=== PATIENT | female | born 1975 | race Caucasian/White ===

== ENCOUNTER → 2016-07-14 | Outpatient (CLI) | payer OTHER ==
[~2016-07-14] MED LIST: CYNI1000 IM; ESTR10TA PV; IBUP-1050 PO; KETO10TA PO; OXYC-57 PO; VTMD PO
--- NOTE | 2016-07-14 14:11 | MAMMOGRAPHY REPORT ---
BILATERAL DIGITAL DIAGNOSTIC MAMMOGRAM TOMOSYNTHESIS WITH CAD AND TARGETED RIGHT ULTRASOUND: 07/15/19 17 CLINICAL HISTORY: The patient reports pain in her right breast for approximately one week with an as sociated area of firmness. She reports a history of a benign surgical excision of the right breast years ago. She also reports injury to the right breast around [place] in which she fell on her br east and had pain which lasted for approximately 2 weeks. TECHNIQUE: Breast tomosynthesis in addition to standard 2D mammography was performed. Current study was also evaluated with a Computer Aided Detection (CAD) system. Bilateral CC and MLO 2-D and deborah synthesis images were obtained. COMPARISON: Comparison is made to exams dated: 07/25/2012 mammogram, 02/17/2011 ultrasound, 02/17/2011 [facility], 06/17/2006 mammogram, and 08/07/2002 mammogram. BREAST COMPOSITION: The tissue of both breasts is almost entirely fatty. FINDINGS: A triangle marker weldon the site of the palpable lump and pain in the right upper outer q uadrant. There are no suspicious masses, calcifications, or areas of architectural distortion noted in either breast. There has been no significant interval change compared to prior exams. Again no iman are coarse benign dystrophic calcifications in the right upper outer quadrant. Targeted ultrasound was performed of the area of palpable firmness and pain pointed out by the patie nt, involving the right 10 to 12:00 breast, from approximately periareolar region to 5 cm from the n ipple. Sonographically normal tissue is seen, without evidence of a mass or other suspicious sonogr aphic abnormality. Incidentally noted is a 3 mm echogenic mass with posterior acoustic shadowing in the right breast at 11:00, 7 cm from the nipple, which corresponds with one of the benign dystrophi c calcifications seen mammographically. IMPRESSION: ACR BI-RADS CATEGORY 2: BENIGN, TARGETED ULTRASOUND ACR BI-RADS CATEGORY 2: BENIGN No suspicious mammographic or sonographic abnormality at the site of the palpable firmness and pain pointed out by the patient in the right breast. There is no mammographic or targeted sonographic ev idence of malignancy. Recommend clinical follow-up for right breast symptoms, and recommend routine bilateral screening mammograms in one year. The patient has been verbally notified of the results. Approximately 10% of breast cancers are not detected with mammography. A negative mammographic repor t should not delay biopsy if a clinically suggestive mass is present. Maite Lugo M.D. ah/:07/14/2016 09:48:31 Recreational Therapy Technician: Jessica MILLER)(Ry), [facility] letter sent: Normal 1/2 BI-RADS Code: ACR BI-RADS Category 2: Benign Ultrasound BI-RADS: ACR BI-RADS Category 2: Benign
== END | disposition home or self-care (01) ==
LOC: C.MAMM 08:54
PROVIDERS: ATTEND Internal Medicine
DX: N63 Unspecified lump in breast (principal)

== ENCOUNTER → 2016-07-27 | Outpatient (CLI) | payer OTHER | END | disposition home or self-care (01) | LOC: C.LABSPEC 17:33 | PROVIDERS: ATTEND Physician Assistant | DX: N89.8 Other specified noninflammatory disorders of vagina (principal) ==

== ENCOUNTER 2016-08-27 09:08 | Day surgery (SDC) | payer OTHER ==
[2016-08-25 15:03] VITALS: BMI 46.0
--- NOTE | 2016-08-25 15:40 | PAT Medication Instructions ---
Service Date Aug 25, 2016. Current Home Medication List Ibuprofen (Advil), 800 MG PO DAILY PRN for Pain Medication Instructions For Your Scheduled Surgery - Check with surgeon for instructions: Ibuprofen (Advil), 800 MG PO DAILY PRN for Pain If you have any questions please call us at [phone] or [phone] or [phone]
[2016-08-25 16:19] LABS: BASO % 0.2 %; BASO ABS # 0.02 K/uL (0-0.2); EOS % 1.9 %; HEMATOCRIT 42.7 % (37-47); IG% 0.2 %; LYMPH % 36.8 %; LYMPH ABS # 3.26 K/uL (1.2-3.4); MEAN CELL VOLUME 59.2 fL (80-100); MEAN CORPUSCULAR HEMOGLOBIN 19.6 pg (25-34); MONO % 5.3 %; NEUT % 55.6 %; PLATELET COUNT 192 K/uL (130-400); RED BLOOD COUNT 7.21 M/uL (4.2-5.4); WHITE BLOOD COUNT 8.86 K/uL (4.8-10.8)
--- NOTE | 2016-08-25 16:24 | DIAGNOSTIC IMAGING REPORT ---
CHEST PREADMISSION(PA/LAT) CLINICAL HISTORY: 41 years-old Female presenting with PREOP. TECHNIQUE: PA and lateral views of the chest were obtained. COMPARISON: 12/04/2012. FINDINGS: Cardiomediastinal silhouette normal. Lungs and pleural spaces clear. Osseous structures normal. Cholecystectomy clips noted. IMPRESSION: 1. No acute cardiopulmonary disease. Electronically signed by: Sampson Augustin M.D. 08/25/2016 4:22 PM Dictated Date/Time: 08/25/2016 4:21 PM
[2016-08-25 16:25] LABS: INR 0.9 (0.9-1.1)
[2016-08-25 16:29] LABS: CALCIUM 9.5 mg/dl (8.5-10.1); CREATININE 0.94 mg/dl (0.60-1.20); POTASSIUM 3.9 mmol/L (3.5-5.1)
[2016-08-25 16:54] LABS: COMPLETE YES; MICROCYTOSIS PRESENT
[~2016-08-27] VITALS: Ht 175.3 cm; Wt 144.7 kg
[~2016-08-27 09:08] MED LIST changes: +ACETAMINOPHEN 500 MG TAB PO SCH; +ATROPINE SULFATE 0.1 MG/ML 5ML SYR IV PRN; +CLINDAMYCIN 600 MG/54 ML D5W 54 ML IV SCH; -CYNI1000 IM; -ESTR10TA PV; +EpHEDrine SULFATE INJ 50 MG/ML AMP IV PRN; +FENTANYL CITRATE INJ 50 MCG/1 ML 2 ML VIAL IV PRN; -KETO10TA PO; +LACTATED RINGER'S 1000ML 1,000 ML IV SCH; +LACTATED RINGER'S 1000ML IV SCH; +ONDANSETRON INJ 2 MG/ML 2 ML VIAL IV PRN; -OXYC-57 PO; +ROPIVACAINE 0.5% 5 MG/ML 30 ML VIAL ONE; -VTMD PO
[2016-08-27 09:36] VITALS: BP 138/88; PULSE 70; TEMP 36.8; O2SAT 97; Ht 175.3 cm; Wt 144.7 kg
[2016-08-27] MEDS ORDERED: PROPOFOL IV EMULSION 10 MG/ML 20 ML VIAL IV ONE (09:42)
[2016-08-27] MEDS ORDERED: LIDOCAINE HCL 2% 2 ML VIAL (20MG/ML) ONE (09:42)
--- NOTE | 2016-08-27 09:42 | History & Physical Bridge Note ---
H&P Re-Evaluation Bridge Note: I have examined the patient, reviewed the History & Physical and in the interval since the performance of the History & Physical I have noted the following changes of clinical significance: No changes noted
[2016-08-27] MEDS ORDERED: MIDAZOLAM HCL 1 MG/ML 2ML VIAL ONE (09:43)
[2016-08-27] MEDS ORDERED: FENTANYL CITRATE INJ 50 MCG/1 ML 2 ML VIAL ONE (09:43)
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
[2016-08-27] MEDS ORDERED: SUCCINYLCHOLINE CHLORIDE 20 MG/ML 10 ML VIAL IV ONE (10:22)
[2016-08-27] MEDS ORDERED: ROCURONIUM BROMIDE 10 MG/ML 5 ML VIAL ONE (10:22)
[2016-08-27] MEDS ORDERED: BUPIVACAINE/EPINEPHRINE 0.5% MPF 1:200,000 10 ML VIAL ONE ×2 (11:36→11:37)
[2016-08-27] MEDS ORDERED: EpINEphrine HCL INJ 1 MG/ML 5ML SYRINGE ONE (11:38)
[2016-08-27] MEDS ORDERED: KETO10TA PO (12:55)
[2016-08-27] MEDS ORDERED: OXYC-57 PO (12:55)
[2016-08-27] MEDS ORDERED: SODIUM CHLORIDE 0.9% 1000ML 1,000 ML IV SCH (12:57)
--- NOTE | 2016-08-27 12:57 | Discharge Instructions ---
Discharge Instructions Date of Service Aug 27, 2016. Admission Reason for Admission: Osteophyte of Bone Discharge Discharge Diagnosis / Problem: SAME ABOVE Discharge Goals Goal(s): Decrease discomfort, Improve function Activity Recommendations Activity Limitations: as noted below Lifting Limitations: gradually increase as tolerated Exercise/Sports Limitations: gradually increase as tolerated Shower/Bathe: tomorrow Driving or Machine Use: WHEN OUT OF THE SLING AND OFF OF PAIN MEDICATION . Instructions / Follow-Up Instructions / Follow-Up MEDICATIONS: * Resume previous medications unless instructed otherwise by your surgeon. * Always take pain medication on a full stomach or with food to avoid upset stomach. * Do not drink alcohol or drive while taking narcotics. * Ibuprofen or Tylenol may be taken if narcotic not needed. SPECIAL CARE INSTRUCTIONS: __ None _X_ Keep extremity elevated and iced x 48 hours; apply ice 20-30 minutes 8-10 times/day. May remove at night. _X_ Sling (WEAR NEEDED FOR COMFORT) __24 hrs/day __ Remove at night __ Shoulder Immobilizer __ 24 hrs/day __ Remove at night _X_ Dressing __ Maintain until seen in office, may shower with plastic over site _X_ Remove dressings in 24-48 hours and then may shower _X_ Cover incisions with band-aids after showering __ Do not remove steri-strips Call physician if chills or temperature rises above 102 degrees or pain unrelieved by prescribed pain medications at . DO NOT TAKE OTHER ANTI-INFLAMMATORIES SUCH IBUPROFEN WHILE TAKING TORADOL TAKE TORADOL EVERY 8 HOURS WITH FOOD . Current Hospital Diet Patient's current hospital diet: Discharge Diet Recommended Diet: Regular Diet Fluid Restriction: None Procedures Procedures Performed: Right Shoulder Arthroscopy Distal Clavicle Resection Pending Studies Studies pending at discharge: no Work Instructions Return To Work: after follow-up Medical Emergencies . Who to Call and When: Medical Emergencies: If at any time you feel your situation is an emergency, please call 911 immediately. . Non-Emergent Contact Non-Emergency issues call your: Primary Care Provider Call Non-Emergent contact if: you have a fever, temperature is above 101.5 . "Provider Documentation" section prepared by Teodoro Villanueva. . VTE Core Measure Inpt VTE Proph given/why not?: Treatment not indicated
[2016-08-27] MEDS ORDERED: ONDANSETRON INJ 2 MG/ML 2 ML VIAL IV PRN (13:00)
[2016-08-27] MEDS ORDERED: OXYCODONE/ACETAMINOPHEN 5-325 TAB PO PRN ×2 (13:00)
--- NOTE | 2016-08-27 13:37 | Anesthesiology Progress Note ---
Anesthesia Post Op Note Date & Time Aug 27, 2016 at 13:37 Vital Signs Pain Intensity: 0 Vital Signs Past 12 Hours Date Time Temp Pulse Resp B/P (MAP) Pulse Ox O2 Delivery O2 Flow Rate FiO2 08/27/16 13:31 132/80 08/27/16 13:30 51 20 100 08/27/16 13:30 50 20 08/27/16 13:27 36.2 51 21 132/80 100 Nasal Cannula 2 08/27/16 13:27 123/93 08/27/16 13:25 54 20 100 08/27/16 13:25 53 20 08/27/16 13:22 159/78 08/27/16 13:20 58 20 100 08/27/16 13:20 56 20 08/27/16 13:19 50 15 100 08/27/16 13:19 50 15 100 08/27/16 13:19 54 15 08/27/16 13:19 54 15 08/27/16 13:17 135/83 08/27/16 13:17 135/83 08/27/16 13:14 54 21 100 08/27/16 13:14 54 21 100 08/27/16 13:14 54 21 08/27/16 13:14 54 21 08/27/16 13:12 149/86 08/27/16 13:12 149/86 08/27/16 13:09 52 17 100 08/27/16 13:09 51 17 08/27/16 13:09 51 17 08/27/16 13:09 52 17 100 08/27/16 13:07 123/85 08/27/16 13:07 123/85 08/27/16 13:04 52 20 100 08/27/16 13:04 52 20 08/27/16 13:04 52 20 08/27/16 13:04 52 20 100 08/27/16 13:03 119/74 08/27/16 13:03 119/74 08/27/16 12:59 61 27 100 08/27/16 12:59 61 27 100 08/27/16 12:59 64 27 08/27/16 12:59 64 27 08/27/16 12:57 139/71 08/27/16 12:57 139/71 08/27/16 12:55 138/83 08/27/16 12:55 138/83 08/27/16 12:54 36.0 59 21 138/83 100 Mask 10 08/27/16 12:54 55 19 100 08/27/16 12:54 55 19 100 08/27/16 12:54 59 19 08/27/16 12:54 59 19 08/27/16 09:36 36.8 70 18 138/88 (105) 97 Room Air Notes Mental Status: alert / awake / arousable, participated in evaluation Pt Amnestic to Procedure: Yes Nausea / Vomiting: adequately controlled Pain: adequately controlled Airway Patency, RR, SpO2: stable & adequate BP & HR: stable & adequate Hydration State: stable & adequate Anesthetic Complications: no major complications apparent
[2016-08-27 13:45] VITALS: BP 101/57; PULSE 52; TEMP 36.2; O2SAT 94
--- NOTE | 2016-08-27 14:08 | [facility] Post Operative Brief Note ---
Immediate Operative Summary Operative Date Aug 27, 2016. Pre-Operative Diagnosis Right AC joint arthritis Post-Operative Diagnosis Right AC joint arthritis Procedure(s) Performed Right Shoulder Arthroscopy Distal Clavicle Resection Surgeon Dr Carlton Wiley Nuclear Security Officer Surgeon(s) Bertram Villanueva PA-C Estimated Blood Loss 5cc Findings as above Specimens None as per surgeon Complication(s) None Disposition Recovery Room / PACU
[2016-08-27 14:15] VITALS: BP 104/63; PULSE 62; TEMP 36.2; O2SAT 94
[2016-08-27 14:45] VITALS: BP 109/65; PULSE 62; TEMP 36.5; O2SAT 96
== END 2016-08-27 14:50 | disposition home or self-care (01) ==
LOC: C.ACU 09:08
PROVIDERS: ATTEND Orthopaedic Surgery
DX: M19.011 Primary osteoarthritis, right shoulder (principal); M25.811 Other specified joint disorders, right shoulder

== ENCOUNTER → 2017-06-02 | Outpatient (CLI) | payer OTHER ==
[~2017-06-02] MED LIST changes: -ACETAMINOPHEN 500 MG TAB PO SCH; -ATROPINE SULFATE 0.1 MG/ML 5ML SYR IV PRN; -CLINDAMYCIN 600 MG/54 ML D5W 54 ML IV SCH; -EpHEDrine SULFATE INJ 50 MG/ML AMP IV PRN; -FENTANYL CITRATE INJ 50 MCG/1 ML 2 ML VIAL IV PRN; -LACTATED RINGER'S 1000ML 1,000 ML IV SCH; -LACTATED RINGER'S 1000ML IV SCH; -ONDANSETRON INJ 2 MG/ML 2 ML VIAL IV PRN; -ROPIVACAINE 0.5% 5 MG/ML 30 ML VIAL ONE
--- NOTE | 2017-06-02 09:22 | DIAGNOSTIC IMAGING REPORT ---
L-SPINE MIN 4 VIEWS ROUTINE HISTORY: Pain M54.41 Right-sided low back pain with [id number] COMPARISON: None. FINDINGS: There is no fracture. No subluxation. Moderate degenerative disc change L4-L5 and L5-S1. IMPRESSION: Moderate degenerative disc change L4-L5 and L5-S1. Mild scoliosis. No acute process. The above report was generated using voice recognition software. It may contain grammatical, syntax or spelling errors. Electronically signed by: Vicente Jones M.D. 06/02/2017 9:21 AM Dictated Date/Time: 06/02/2017 9:20 AM
--- NOTE | 2017-06-02 09:23 | DIAGNOSTIC IMAGING REPORT ---
R HIP UNILATERAL 2 VIEWS CLINICAL HISTORY: M54.41 Right-sided low back pain with [id number] pain COMPARISON: None. DISCUSSION: The bones and joint spaces appear intact. There is no evidence of fracture, dislocation or bony disease. There is no evidence for soft tissue swelling. IMPRESSION: Negative study. The above report was generated using voice recognition software. It may contain grammatical, syntax or spelling errors. Electronically signed by: Vicente Jones M.D. 06/02/2017 9:22 AM Dictated Date/Time: 06/02/2017 9:21 AM
== END | disposition home or self-care (01) ==
LOC: C.RAD1850 09:00
PROVIDERS: ATTEND Physician Assistant
DX: M54.41 Lumbago with sciatica, right side (principal); M99.73 Connective tissue and disc stenosis of intervertebral foramina of lumbar region

== ENCOUNTER → 2017-09-14 | Outpatient (CLI) | payer OTHER ==
[~2017-09-14] MED LIST changes: +CYAN30003 INJ; -IBUP-1050 PO; +Vitamin D PO
[2017-09-14 09:38] LABS: BASO % 0.2 %; BASO ABS # 0.02 K/uL (0-0.2); EOS % 1.4 %; EOS ABS # 0.11 K/uL (0-0.5); HEMATOCRIT 43.6 % (37-47); HEMOGLOBIN 14.2 g/dL (12.0-16.0); IG# 0.02 K/uL (0.00-0.02); LYMPH % 33.1 %; LYMPH ABS # 2.68 K/uL (1.2-3.4); MEAN CELL VOLUME 60.5 fL (80-100); MEAN CORPUSCULAR HEMOGLOBIN 19.7 pg (25-34); MEAN CORPUSCULAR HGB CONC 32.6 g/dl (32-36); MONO % 8.3 %; MONO ABS # 0.67 K/uL (0.11-0.59); NEUT % 56.8 %; PLATELET COUNT 200 K/uL (130-400); RED CELL DISTRIBUTION WIDTH CV 17.7 % (11.5-14.5); RED CELL DISTRIBUTION WIDTH SD 36.7 fL (36.4-46.3)
[2017-09-14 09:59] LABS: ALBUMIN 4.1 gm/dl (3.4-5.0); ALKALINE PHOSPHATASE 74 U/L (45-117); ALT/SGPT 32 U/L (12-78); AST/SGOT 18 U/L (15-37); BLOOD UREA NITROGEN 10 mg/dl (7-18); CALCIUM 9.1 mg/dl (8.5-10.1); CARBON DIOXIDE 25 mmol/L (21-32); CREATININE 1.08 mg/dl (0.60-1.20); GLUCOSE 87 mg/dl (70-99); POTASSIUM 4.1 mmol/L (3.5-5.1); SODIUM 138 mmol/L (136-145); TOTAL PROTEIN 7.2 gm/dl (6.4-8.2)
== END | disposition home or self-care (01) ==
LOC: C.LAB 07:56
PROVIDERS: ATTEND Physician Assistant
DX: G93.2 Benign intracranial hypertension (principal)

== ENCOUNTER → 2017-09-30 | Outpatient (CLI) | payer OTHER ==
--- NOTE | 2017-09-30 08:45 | DIAGNOSTIC IMAGING REPORT ---
LUMBAR SPINE W/O CONTRAST HISTORY: Pain LOWER BACK PAIN TECHNIQUE: Multiplanar multisequence MRI of the lumbar spine was performed without the use of contrast. COMPARISON: None. FINDINGS: For the purpose of the report the L5-S1 disc space will be located on axial image 27 of 30. Normal signal characteristics of the vertebral bodies. Mild degenerative disc change throughout. Potential extruded disc fragment posterior to the L5 vertebral body. Synovial and/or Tarlov cyst posterior to the S2-S3 segment measuring 2.5 x 1.25 cm. No significant bone marrow replacing process. Broad-based bulging disc based on the sagittal images at T12-L1. L1-L2: No significant central canal or neural foraminal narrowing. L2-L3: No significant central canal or neural foraminal narrowing. L3-L4: No significant central canal or neural foraminal narrowing. L4-L5: Mild broad-based bulging disc. Minimal impact anterior thecal sac. No significant compromise of the neuroforamina. L5-S1: Right central disc herniation. Moderate impact anterior aspect of the thecal sac. An extruded disc fragment posterior to L5 based on the sagittal images cannot be duplicated on the transaxial acquisition. IMPRESSION: 1. Broad-based right central disc herniation L5-S1. 2. There is moderate impact upon the anterior aspect of thecal sac. 3. 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 Broad-based bulging disc T12-L1. 4. No major compromise of the spinal canal or neural foramina. The above report was generated using voice recognition software. It may contain grammatical, syntax or spelling errors. Electronically signed by: Vicente Jones M.D. 09/30/2017 8:44 AM Dictated Date/Time: 09/30/2017 8:32 AM
== END | disposition home or self-care (01) ==
LOC: C.MRIBC 07:36
PROVIDERS: ATTEND Anesthesiology
DX: M62.81 Muscle weakness (generalized) (principal); M51.16 Intervertebral disc disorders with radiculopathy, lumbar region; M71.38 Other bursal cyst, other site

== ENCOUNTER 2018-04-06 11:29 | Observation (INO) ==
[2018-04-06 11:55] LABS: Basophils # (auto) 0.03 K/uL (0-0.2); Basophils % (auto) 0.3 %; Eosinophils # (auto) 0.15 K/uL (0-0.5); Eosinophils % (auto) 1.6 %; Hematocrit (blood only) 44.5 % (37-47); Hemoglobin 14.4 g/dL (12.0-16.0); Immature Granulocytes # (auto) 0.03 K/uL (0.00-0.02); Immature Granulocytes % (auto) 0.3 %; Lymphocytes # (auto) 2.54 K/uL (1.2-3.4); Lymphocytes % (auto) 26.4 %; Mean Corpuscular Hgb Conc 32.4 g/dL (32-36); Mean Corpuscular Volume 60.9 fL (80-100); Monocytes # (auto) 0.54 K/uL (0.11-0.59); Monocytes % (auto) 5.6 %; Neutrophils # (auto) 6.32 K/uL (1.4-6.5); Neutrophils % (auto) 65.8 %; Platelet Count 218 K/uL (130-400); RDW Coefficient of Variation 17.3 % (11.5-14.5); RDW Standard Deviation 36.3 fL (36.4-46.3); Red Blood Count 7.31 M/uL (4.2-5.4); White Blood Count 9.61 K/uL (4.8-10.8)
[2018-04-06] MEDS ORDERED: OPTIRAY 320 125ml IV PRN (12:04)
[2018-04-06 12:05] LABS: Partial Thromboplastin Ratio 0.9; Partial Thromboplastin Time 24.5 Seconds (21.0-31.0)
[2018-04-06] MEDS ORDERED: LORazepam 2 MG/4 ML VIAL ONE (12:05)
--- NOTE | 2018-04-06 12:05 | CT Scan Report ---
CT SCAN OF THE BRAIN WITHOUT IV CONTRAST CLINICAL HISTORY: Strokelike symptoms. COMPARISON STUDY: CT of the brain dated 05/23/2015. TECHNIQUE: Unenhanced axial CT scan of the brain is performed from the vertex to the skull base. A d ose lowering technique was utilized adhering to the principles of ALARA. CT DOSE: 1199.66 mGy.cm FINDINGS: Brain parenchyma: The brain parenchyma is normal in appearance. There is no hemorrhage, mass effect, or evidence of acute territorial ischemia by CT criteria. Martinez-white matter differentiation is preser renita. No extra-axial fluid collection is seen. Ventricles, sulci, cisterns: Normal in configuration. Intracranial vasculature: The visualized intracranial vasculature at the skull base is normal in appe arance. Calvarium: There are postoperative changes from occipital craniectomy. The calvarium is otherwise nor mal in appearance. 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 The visualized paranasal sinuses are otherwise clear. The mastoid air cells are well pneumatized. Orbits: The bony orbits are grossly intact. IMPRESSION: There is no hemorrhage, mass effect, or evidence of acute territorial ischemia by CT yefri dobbins. Electronically signed by: Jhonathan Prince M.D. 04/06/2018 12:03 PM
--- NOTE | 2018-04-06 12:14 | CT Scan Report ---
CT ANGIOGRAM OF THE BRAIN; CT ANGIOGRAM OF THE NECK CLINICAL HISTORY: Left arm weakness. COMPARISON STUDY: Unenhanced CT of the brain performed concurrently on 04/06/2018. CT of the brain da iman 05/23/2015. TECHNIQUE: Following the IV administration of 119 of Optiray 320, CT angiogram of the head and neck w as performed from the aortic arch to the vertex. Images are reviewed in the axial, sagittal, and susan nal planes. 3-D MIPS images are created and assessed. IV contrast was administered without complicati on. All measurements were calculated based on NASCET criteria. A dose lowering technique was utilize d adhering to the principles of ALARA. FINDINGS: Brain parenchyma: The brain parenchyma is normal in appearance. There is no hemorrhage, mass effect, or evidence of acute territorial ischemia by CT criteria. There is no evidence of enhancing mass lesi on on the angiogram phase images. The ventricles, sulci, and cisterns are normal in configuration. Gr ay-white matter differentiation is preserved. No extra-axial fluid collection is seen. Thoracic aorta: Visualized portions of the thoracic aorta are normal in caliber. The aortic arch demo nstrates bovine variant anatomy. Right carotid arterial system: The right common carotid artery is widely patent, as are the right int ernal and external carotid arteries. Left carotid arterial system: The left common carotid artery is widely patent, as are the left internal communications manager al and external carotid arteries. Vertebral arteries: The vertebral arteries are widely patent and codominant. Subclavian arteries: Widely patent bilaterally. Intracranial vasculature: The internal carotid arteries are patent at the skull base, as are the ante rior and middle cerebral arteries bilaterally. The vertebrobasilar system and posterior cerebral li miles are widely patent. The vertebral arteries are codominant. There is no aneurysm, high-grade steno sis, or focal vessel cut off seen throughout the intracranial circulation. Jugular veins: Widely patent bilaterally. Dural sinuses: Patent. Lung apices: Partially visualized upper lobe lung parenchyma appears clear. Soft tissues: The visualized pharyngeal soft tissues are normal in appearance noting angiographic pha se technique. The oropharyngeal airway appears widely patent. An 11 mm low-attenuation nodule is note d in the left thyroid lobe. This was better characterized on prior ultrasounds. The thyroid gland is otherwise unremarkable. The salivary glands are normal in appearance. No cervical lymphadenopathy is seen. Skeletal structures: There are postoperative changes from right occipital craniectomy. The calvarium is otherwise normal in appearance. The cervical spine appears intact. 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 The paranasal sinuses ar e otherwise clear. The mastoid air cells are well pneumatized. IMPRESSION: 1. There is no hemorrhage, mass effect, or evidence of acute territorial ischemia by CT criteria on t his angiographic phase examination. 2. Unremarkable CT angiogram of the brain. 3. Unremarkable CT angiogram of the neck. Electronically signed by: Jhonathan Prince M.D. 04/06/2018 12:12 PM
[2018-04-06 12:16] LABS: BUN Creatinine Ratio 8.7 (10-20); Blood Urea Nitrogen 9 mg/dl (7-18); Calcium 8.7 mg/dl (8.5-10.1); Carbon Dioxide 26 mmol/L (21-32); Chloride 105 mmol/L (98-107); Creatinine Clr Calc Pharmacy 111.8 ml/min; Est GFR (African American) 77.6; Glucose 102 mg/dl (70-99); Magnesium 2.1 mg/dl (1.8-2.4); Potassium 3.9 mmol/L (3.5-5.1); Sodium 137 mmol/L (136-145)
[2018-04-06] MEDS: SODIUM CHLORIDE 0.9% 1000ML 1,000 ML IV SCH ×2 (12:16→22:01)
[2018-04-06 12:20] LABS: Microcytosis Present
[2018-04-06 12:21] LABS: Troponin I < 0.015 ng/ml (0-0.045)
[2018-04-06] MEDS ORDERED: MAGNESIUM SULFATE / D5W 1 GM/100 ML BAG IV ONE (12:49)
[2018-04-06] MEDS ORDERED: SODIUM CHLORIDE 0.9% 1000ML 1,000 ML IV ONE (12:49)
[2018-04-06] MEDS ORDERED: ASPIRIN CHEW 324 MG PO STA (12:51)
[2018-04-06] MEDS ORDERED: NICOTINE POLACRILEX 2 MG GUM MT PRN (12:51)
--- NOTE | 2018-04-06 13:05 | XRay Report ---
XR chest 1V portable CLINICAL HISTORY: Left arm weakness COMPARISON STUDY: 08/25/2016 FINDINGS: The heart is enlarged. There is mild interstitial prominence of finding which in part is li blanka accentuated due to the patient's large body habitus. An element of mild pulmonary vascular conge stion however cannot be excluded There is no lobar consolidation. There are no pleural effusions.[ IMPRESSION: 1. Cardiomegaly and mild interstitial prominence. 2. No evidence of focal pulmonary consolidation Electronically signed by: Alfred Mcnulty M.D. 04/06/2018 1:03 PM
--- NOTE | 2018-04-06 13:55 | History & Physical Report ---
Date of Service April 06, 2018 Assessment & Plan (1) Left arm weakness: associated with numbness and tremor when trying to use left arm and hand still with weakness in the ED CT head and CTA head and neck normal, no role for tPA will check MRI brain could be a complex migraine given her severe migraine headache yesterday will consult Dr. Horner for his opinion and recommendations asprin 81mg daily check lipid profile and A1c for stroke risk modification (2) Lumbar disc herniation: chronic, ongoing issue just completed Medrol pack as outpatient [facility] (3) Migraine headache: had a sever headache yesterday does not take any prophylactic medication will ask for Dr. Horner's opinion on this issue as well observation status over night DVT prophylaxis: Lovenox History of Present Illness Chief Complaint: I am really weak in my left arm and hand Primary Care Provider: Ching Abbasi MD 42 yo female with history of brain surgery to remove several cysts years ago, followed with a history of pseudotumor cerebri and focal, silent seizures, presents to the ED today one hour after experiencing acute onset left arm and hand weakness and tremors. She says that she experienced the exact same issue on Tuesday morning, 5 days ago. She said that she woke up feeling normal, she was going to make some coffee and when she reached out to grab the coffee with her left hand she felt incredibly weak and her hand had tremors. She could not use the left arm because it was so weak. She thought that maybe she had to eat so fed herself with her right hand and the symptoms started to improve very slowly, lasted in total between 20-30 minutes. She felt fine the rest of the week until today around 10-1020. She had a normal morning, full strength in her left upper extremity. She went to the bank through the drive through [place] and when she reached out with her left arm she again had tremors and did not have the strength to even push the buttons on the [place], had to get out of her car and use her right hand. The weakness was associated with some numbness to tough but she did not have pins and needles sensation. She also had some numbness on the left side of her face. When she looked at her phone to read a text message her vision was slightly blurred. No weakness in left leg or on the right side of her face. Asked her about any headache. She denied headache today but admitted that yesterday she had a very intense headache, likely a migraine. In the ED a stroke alert was called because she was within one hour of onset of symptoms. Evaluated by stroke neurologist, decided against tPA. CT and CTA head and neck were normal. We are asked to admit for possible stroke, will get MRI. As mentioned above, patient has a history of several cysts being removed from her brain. As a result of the removal, she suffered some mild nerve irritation and damage, she would experience some pain and numbness on the right side of her face but that has been resolved for some time. 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 Dr. Riddle stopped the medications about one year ago and she has not had any issues the past year. She gets MRI of the brain yearly for follow up and her images have all been stable. Allergies Allergy/AdvReac Type Severity Reaction Status Date / Time morphine Allergy Mild SHORTNESS Verified 04/06/18 12:49 OF BREATH Penicillins Allergy Mild HIVES Verified 04/06/18 12:49 ibuprofen Allergy Unknown RASH Unverified 04/06/18 12:49 Home Medications Home Medications Medication Instructions Recorded Confirmed Type No Known Home Medications 04/06/18 04/06/18 History Past Med/Surg History Medical History Lumbar radiculitis (Chronic) Morbid obesity with BMI of 45.0-49.9, adult (Chronic) Lumbar disc herniation (Chronic) Vitamin B12 deficiency (Chronic) Vitamin D deficiency (Chronic) History of absence seizures Pseudotumor cerebri Surgical History H/O brain surgery (Resolved) History of arthroscopy of right shoulder (Resolved) History of cholecystectomy (Resolved) History of hysterectomy (Resolved) S/P breast lumpectomy (Resolved) Family History Other HTN (hypertension) Social History Feels Safe at Home: Yes Smoking Status: Current every day smoker Review of Systems All systems reviewed & are unremarkable except as noted in HPI & below Eyes: + worsening vision (blurred vision briefly this morning) Respiratory: no cough and no dyspnea Cardiovascular: no chest pain, no syncope and no edema Gastrointestinal: no abdominal pain, no nausea, no vomiting, no constipation and no diarrhea/loose stools Musculoskeletal: + back pain (low back pain, chronic, just completed medrol pack , [facility]) Neurologic: + localized weakness (left arm and hand), + loss of sensation (left arm and hand, left face), + tremor(s) (left arm and hand when using them) and + headache(s) (yesterday severe headache, migraine); no gait abnormality, no unsteadiness, no falls, no generalized weakness, no paralysis, no lack of coordination, no radiating pain, no abnormal movements, no restless legs, no seizure-like activity, no dizziness, no syncope, no abnormal speech, no behavioral changes, no confusion and no memory loss Physical Exam 2 Vital Signs (Past 24 Hours): Last Vital Signs Temp 36.8 C 04/06/18 11:32 Pulse 78 04/06/18 13:05 Resp 16 04/06/18 13:05 BP 124/82 04/06/18 13:05 Pulse Ox 98 04/06/18 13:05 Constitutional: WD/WN, vitals as above + obese Eyes: PERRL, conjunctivae normal, anicteric sclerae ENMT: external ear and nose normal, oropharynx normal Neck: trachea midline, no thyromegaly Respiratory: normal respiratory effort, lungs clear to auscultation Cardiovascular: RRR, no murmur, no edema Gastrointestinal (Abdomen): normal bowel sounds, soft, nontender, no hepatosplenomegaly Musculoskeletal: Head/Neck/Chest: normocephalic, head atraumatic and neck supple Spine: + limited thoraco-lumbar ROM Extremities: extremities normal to inspection and + abnormal strength (3 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 , flexion, abduction on LEFT upper extremity) Skin: no rashes, warm and dry Neurologic: PERRL, EOMI, accommodation nl, no face palsy, no dysarthria CN' s II-XI intact bilaterally, deep tendon reflexes 2+ bilaterally, moves all extremities and + focal motor deficit (left arm and hand) Motor/Sensory: + tremor (very mild tremor in left arm when extending out in front of her) Psychiatric: A+Ox3, euthymic affect Lymphatic: no cervical or axillary lymphadenopathy Results & Data Laboratory Results Abnormal lab results 04/06/18 04/06/18 04/06/18 Range/Units 11:45 11:45 12:14 RBC 7.31 H (4.2-5.4) M/uL MCV 60.9 L (80-100) fL MCH 19.7 L (25-34) pg RDW Std Deviation 36.3 L (36.4-46.3) fL RDW Coeff of Umm 17.3 H (11.5-14.5) % Immature Gran # (Auto) 0.03 H (0.00-0.02) K/uL BUN/Creatinine Ratio 8.7 L (10-20) Glucose 102 H (70-99) mg/dl POC Glucose 100 H (70-99) Diagnostic Findings CT HEAD: IMPRESSION: There is no hemorrhage, mass effect, or evidence of acute territorial ischemia by CT criteria. CTA HEAD AND NECK: normal XR chest 1V portable IMPRESSION: 1. Cardiomegaly and mild interstitial prominence. 2. No evidence of focal pulmonary consolidation ECG Indication: weakness Rhythm: normal sinus Code Status & VTE Plan Code Status full code VTE Prophylaxis Plan VTE Prophylaxis will be ordered: Yes
[2018-04-06] MEDS ORDERED: GADOBUTROL 65ML VIAL IV PRN (14:46)
--- NOTE | 2018-04-06 14:49 | Emergency Department Note ---
Entered by Nancy Vu acting as a scribe for History of Present Illness General Chief complaint: Neuro Symptoms/Deficit Stated complaint: LOSS OF FEELING LT ARM AND FACIAL NUMBNESS Time Seen by Provider: 04/06/18 11:41 History of Present Illness Provider complaint: left arm weakness Onset (ago): hour(s) (1.5) Location: lower extremity (left) Pain Consistency: + constant Quality: + other (weakness) Associated symptoms: + other (blurred vision in left eye, left-sided facial numbness) The patient is a 42 year old female who presents to the Emergency Room with complaints of persistent weakness in her left arm beginning 1.5 hours ago. She notes the weakness radiates into her shoulder. The patient states she has numbness on the left side of her face. The patient reports blurred vision in her left eye. She notes her symptoms began while working on a computer. The patient reports she had a similar episode of numbness and weakness, accompanied by shaking, a few days ago. 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 Home Medications Home Medications Medication Instructions Recorded Confirmed Type No Known Home Medications 04/06/18 04/06/18 History Allergies Allergy/AdvReac Type Severity Reaction Status Date / Time morphine Allergy Mild SHORTNESS Verified 04/06/18 12:49 OF BREATH Penicillins Allergy Mild HIVES Verified 04/06/18 12:49 ibuprofen Allergy Unknown RASH Unverified 04/06/18 12:49 Past Med/Surg History Medical History Lumbar radiculitis (Chronic) Morbid obesity with BMI of 45.0-49.9, adult (Chronic) Lumbar disc herniation (Chronic) Vitamin B12 deficiency (Chronic) Vitamin D deficiency (Chronic) History of absence seizures Pseudotumor cerebri Surgical History H/O brain surgery (Resolved) History of arthroscopy of right shoulder (Resolved) History of cholecystectomy (Resolved) History of hysterectomy (Resolved) S/P breast lumpectomy (Resolved) Social History Feels Safe at Home: Yes Smoking Status: Current every day smoker Review of Systems See HPI for pertinent positives & negatives. and A total of 10 systems reviewed and were otherwise negative Physical Exam Vital Signs Vital Signs - 24 hr 04/06/18 11:32 04/06/18 12:12 04/06/18 13:05 Temperature 36.8 C Temperature Source Oral Sepsis Recent Fever Within 48 Hours No Sepsis Action Taken by Nursing No Action Required Pulse Rate 93 H Pulse Rate [Apical] 71 78 Pulse Rhythm Regular Pulse Strength Normal Respiratory Rate 18 18 16 Respiratory Effort / Characteristics Non-Labored Respiratory Depth Normal Respiratory Pattern Regular Blood Pressure [Right Arm] 127/76 124/82 Blood Pressure Mean [Right Arm] 93 96 Blood Pressure Position Sitting Blood Pressure Position [Right Arm] Sitting Pulse Oximetry 100 99 98 Oxygen Delivery Method Room Air Room Air Room Air 04/06/18 13:50 Temperature Temperature Source Sepsis Recent Fever Within 48 Hours Sepsis Action Taken by Nursing Pulse Rate Pulse Rate [Apical] 71 Pulse Rhythm Pulse Strength Respiratory Rate Respiratory Effort / Characteristics Respiratory Depth Respiratory Pattern Blood Pressure [Right Arm] 119/73 Blood Pressure Mean [Right Arm] 88 Blood Pressure Position Blood Pressure Position [Right Arm] Pulse Oximetry Oxygen Delivery Method GENERAL: Awake, alert, well-appearing, in no distress HENT: Normocephalic, atraumatic. Oropharynx unremarkable. EYES: Normal conjunctiva. Sclera non-icteric. NECK: Supple. No nuchal rigidity. FROM. No masses. RESPIRATORY: Clear to auscultation. No wheezes. No rales. Normal respiratory effort. CARDIAC: Normal rate. Normal rhythm. No murmurs. No rubs. Extremities warm and well perfused. Pulses equal. No JVD. GI: Soft, non-distended. No tenderness to palpation. No rebound or guarding. No masses. RECTAL: Deferred. MUSCULOSKELETAL: Atraumatic. Chest examination reveals no tenderness. The back is symmetrical on inspection without obvious abnormality. There is no CVA tenderness to palpation. No joint edema. LOWER EXTREMITIES: Calves are equal size bilaterally and non-tender. No edema. No discoloration. NEURO: Normal sensorium. 3/4 left arm strength. Course 1142: Past medical records reviewed. The patient was evaluated in room C3, and a complete history and physical examination were performed. 1207: Discussed the case with Nhi Brown telestroke neurologist. 1208: I reevaluated and updated the patient. 1250: Reviewed the case again with Nhi Brown telestroke neurologist. 1301: Upon reevaluation, the patient is resting. I discussed test results. They verbalized agreement with the treatment plan. 1321: I reviewed the patient's case with Dr. Gordon, [facility] hospitalist. He will evaluate the patient for further management. Consultations Consultation #1: Hansel Brownhey telestroke neurologist Time: 12:07 Consultation #2: Dr. Gordon, [facility] hospitalist Time: 13:21 Administered Medications Sodium Chloride (Nss 1000ml) 1,000 mls @ 50 mls/hr IV .Q20H VERÓNICA Stop: 05/06/18 11:59 Last Infusion: 04/06/18 13:06 Dose: 0 mls/hr Admin: 04/06/18 12:16 Dose: 50 mls/hr Ioversol (Optiray 320 125ml) 119 ml IV ONCE PRN PRN Reason: Interaction Checking Stop: 04/10/18 12:03 Last Admin: 04/06/18 12:04 Dose: 119 ml Discontinued Medications Aspirin (Aspirin) 324 mg PO NOW STA Stop: 04/06/18 12:52 Last Admin: 04/06/18 12:58 Dose: 324 mg Sodium Chloride (Nss 1000ml) 1,000 mls @ 999 mls/hr IV .Q1H1M ONE Stop: 04/06/18 13:49 Last Infusion: 04/06/18 14:19 Dose: 0 mls/hr Admin: 04/06/18 12:59 Dose: 999 mls/hr Magnesium Sulfate/Dextrose (Magnesium Sulfate / D5w) 1 gm in 100 mls @ 100 mls/ hr IV ONE ONE Stop: 04/06/18 13:48 Last Infusion: 04/06/18 14:19 Dose: 0 mls/hr Admin: 04/06/18 12:59 Dose: 100 mls/hr Lorazepam (Ativan) Confirm Administered Dose 2 mg .ROUTE .STK-MED ONE Stop: 04/06/18 12:06 Last Admin: 04/06/18 12:13 Dose: 1 mg Medical Decision Making Differential Diagnosis Differential includes acute coronary syndrome, myocardial infarction, CVA, TIA , anemia, infection, pneumonia, UTI, pyelonephritis, poor nutrition, dehydration , electrolyte disturbance,hypoglycemia. Medical Records Attestation: I reviewed the patient's medical records. Home Medications Current Medication List: was personally reviewed by me Laboratory Data Attestation: I reviewed the patient's lab results. Result diagrams: 04/06/18 11:45 04/06/18 11:45 Lab Results 04/06/18 04/06/18 04/06/18 Range/Units 11:45 11:45 11:45 WBC 9.61 (4.8-10.8) K/uL RBC 7.31 H (4.2-5.4) M/uL Hgb 14.4 (12.0-16.0) g/dL Hct 44.5 (37-47) % MCV 60.9 L (80-100) fL MCH 19.7 L (25-34) pg MCHC 32.4 (32-36) g/dL RDW Std Deviation 36.3 L (36.4-46.3) fL RDW Coeff of Umm 17.3 H (11.5-14.5) % Plt Count 218 (130-400) K/uL Immature Gran % (Auto) 0.3 % Neut % (Auto) 65.8 % Lymph % (Auto) 26.4 % Bowie % (Auto) 5.6 % Eos % (Auto) 1.6 % Baso % (Auto) 0.3 % Immature Gran # (Auto) 0.03 H (0.00-0.02) K/uL Neut # (Auto) 6.32 (1.4-6.5) K/uL Lymph # (Auto) 2.54 (1.2-3.4) K/uL Bowie # (Auto) 0.54 (0.11-0.59) K/uL Eos # (Auto) 0.15 (0-0.5) K/uL Baso # (Auto) 0.03 (0-0.2) K/uL Microcytosis Present PT 10.0 (9.0-12.0) Seconds INR 1.0 (0.9-1.1) APTT 24.5 (21.0-31.0) Seconds PTT Ratio 0.9 Sodium 137 (136-145) mmol/L Potassium 3.9 (3.5-5.1) mmol/L Chloride 105 (98-107) mmol/L Carbon Dioxide 26 (21-32) mmol/L Anion Gap 6.0 (3-11) BUN 9 (7-18) mg/dl Creatinine 1.03 (0.6-1.2) mg/dl Est Cr Clr Drug Dosing 111.8 ml/min Est GFR ( Amer) 77.6 Est GFR (Non-Af Amer) 67.0 BUN/Creatinine Ratio 8.7 L (10-20) Glucose 102 H (70-99) mg/dl POC Glucose (70-99) Calcium 8.7 (8.5-10.1) mg/dl Magnesium 2.1 (1.8-2.4) mg/dl Troponin I < 0.015 (0-0.045) ng/ml 04/06/18 Range/Units 12:14 WBC (4.8-10.8) K/uL RBC (4.2-5.4) M/uL Hgb (12.0-16.0) g/dL Hct (37-47) % MCV (80-100) fL MCH (25-34) pg MCHC (32-36) g/dL RDW Std Deviation (36.4-46.3) fL RDW Coeff of Umm (11.5-14.5) % Plt Count (130-400) K/uL Immature Gran % (Auto) % Neut % (Auto) % Lymph % (Auto) % Bowie % (Auto) % Eos % (Auto) % Baso % (Auto) % Immature Gran # (Auto) (0.00-0.02) K/uL Neut # (Auto) (1.4-6.5) K/uL Lymph # (Auto) (1.2-3.4) K/uL Bowie # (Auto) (0.11-0.59) K/uL Eos # (Auto) (0-0.5) K/uL Baso # (Auto) (0-0.2) K/uL Microcytosis PT (9.0-12.0) Seconds INR (0.9-1.1) APTT (21.0-31.0) Seconds PTT Ratio Sodium (136-145) mmol/L Potassium (3.5-5.1) mmol/L Chloride (98-107) mmol/L Carbon Dioxide (21-32) mmol/L Anion Gap (3-11) BUN (7-18) mg/dl Creatinine (0.6-1.2) mg/dl Est Cr Clr Drug Dosing ml/min Est GFR ( Amer) Est GFR (Non-Af Amer) BUN/Creatinine Ratio (10-20) Glucose (70-99) mg/dl POC Glucose 100 H (70-99) Calcium (8.5-10.1) mg/dl Magnesium (1.8-2.4) mg/dl Troponin I (0-0.045) ng/ml Imaging Data Radiologist's Impression: Radiology results as stated below per my review and the radiologist's interpretation: CT ANGIOGRAM OF THE BRAIN; CT ANGIOGRAM OF THE NECK CLINICAL HISTORY: Left arm weakness. COMPARISON STUDY: Unenhanced CT of the brain performed concurrently on 2018. CT of the brain dated 05/23/2015. TECHNIQUE: Following the IV administration of 119 of Optiray 320, CT angiogram of the head and neck was performed from the aortic arch to the vertex. Images are reviewed in the axial, sagittal, and coronal planes. 3-D MIPS images are created and assessed. IV contrast was administered without complication. All measurements were calculated based on NASCET criteria. A dose lowering technique was utilized adhering to the principles of ALARA. FINDINGS: Brain parenchyma: The brain parenchyma is normal in appearance. There is no hemorrhage, mass effect, or evidence of acute territorial ischemia by CT criteria. There is no evidence of enhancing mass lesion on the angiogram phase images. The ventricles, sulci, and cisterns are normal in configuration. Martinez- white matter differentiation is preserved. No extra-axial fluid collection is seen. Thoracic aorta: Visualized portions of the thoracic aorta are normal in caliber. The aortic arch demonstrates bovine variant anatomy. Right carotid arterial system: The right common carotid artery is widely patent , as are the right internal and external carotid arteries. Left carotid arterial system: The left common carotid artery is widely patent, as are the left internal and external carotid arteries. Vertebral arteries: The vertebral arteries are widely patent and codominant. Subclavian arteries: Widely patent bilaterally. Intracranial vasculature: The internal carotid arteries are patent at the skull base, as are the anterior and middle cerebral arteries bilaterally. The vertebrobasilar system and posterior cerebral arteries are widely patent. The vertebral arteries are codominant. There is no aneurysm, high-grade stenosis, or focal vessel cut off seen throughout the intracranial circulation. Jugular veins: Widely patent bilaterally. Dural sinuses: Patent. Lung apices: Partially visualized upper lobe lung parenchyma appears clear. Soft tissues: The visualized pharyngeal soft tissues are normal in appearance noting angiographic phase technique. The oropharyngeal airway appears widely patent. An 11 mm low-attenuation nodule is noted in the left thyroid lobe. This was better characterized on prior ultrasounds. The thyroid gland is otherwise unremarkable. The salivary glands are normal in appearance. No cervical lymphadenopathy is seen. Skeletal structures: There are postoperative changes from right occipital craniectomy. The calvarium is otherwise normal in appearance. The cervical spine appears intact. 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 The paranasal sinuses are otherwise clear. The mastoid air cells are well pneumatized. IMPRESSION: 1. There is no hemorrhage, mass effect, or evidence of acute territorial ischemia by CT criteria on this angiographic phase examination. 2. Unremarkable CT angiogram of the brain. 3. Unremarkable CT angiogram of the neck. Electronically signed by: Jhonathan Prince M.D. 04/06/2018 12:[address] ANGIOGRAM OF THE BRAIN; CT ANGIOGRAM OF THE NECK CLINICAL HISTORY: Left arm weakness. COMPARISON STUDY: Unenhanced CT of the brain performed concurrently on 2018. CT of the brain dated 05/23/2015. TECHNIQUE: Following the IV administration of 119 of Optiray 320, CT angiogram of the head and neck was performed from the aortic arch to the vertex. Images are reviewed in the axial, sagittal, and coronal planes. 3-D MIPS images are created and assessed. IV contrast was administered without complication. All measurements were calculated based on NASCET criteria. A dose lowering technique was utilized adhering to the principles of ALARA. FINDINGS: Brain parenchyma: The brain parenchyma is normal in appearance. There is no hemorrhage, mass effect, or evidence of acute territorial ischemia by CT criteria. There is no evidence of enhancing mass lesion on the angiogram phase images. The ventricles, sulci, and cisterns are normal in configuration. Martinez- white matter differentiation is preserved. No extra-axial fluid collection is seen. Thoracic aorta: Visualized portions of the thoracic aorta are normal in caliber. The aortic arch demonstrates bovine variant anatomy. Right carotid arterial system: The right common carotid artery is widely patent , as are the right internal and external carotid arteries. Left carotid arterial system: The left common carotid artery is widely patent, as are the left internal and external carotid arteries. Vertebral arteries: The vertebral arteries are widely patent and codominant. Subclavian arteries: Widely patent bilaterally. Intracranial vasculature: The internal carotid arteries are patent at the skull base, as are the anterior and middle cerebral arteries bilaterally. The vertebrobasilar system and posterior cerebral arteries are widely patent. The vertebral arteries are codominant. There is no aneurysm, high-grade stenosis, or focal vessel cut off seen throughout the intracranial circulation. Jugular veins: Widely patent bilaterally. Dural sinuses: Patent. Lung apices: Partially visualized upper lobe lung parenchyma appears clear. Soft tissues: The visualized pharyngeal soft tissues are normal in appearance noting angiographic phase technique. The oropharyngeal airway appears widely patent. An 11 mm low-attenuation nodule is noted in the left thyroid lobe. This was better characterized on prior ultrasounds. The thyroid gland is otherwise unremarkable. The salivary glands are normal in appearance. No cervical lymphadenopathy is seen. Skeletal structures: There are postoperative changes from right occipital craniectomy. The calvarium is otherwise normal in appearance. The cervical spine appears intact. 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 The paranasal sinuses are otherwise clear. The mastoid air cells are well pneumatized. IMPRESSION: 1. There is no hemorrhage, mass effect, or evidence of acute territorial ischemia by CT criteria on this angiographic phase examination. 2. Unremarkable CT angiogram of the brain. 3. Unremarkable CT angiogram of the neck. Electronically signed by: Jhonathan Prince M.D. 04/06/2018 12:[address] SCAN OF THE BRAIN WITHOUT IV CONTRAST CLINICAL HISTORY: Strokelike symptoms. COMPARISON STUDY: CT of the brain dated 05/23/2015. TECHNIQUE: Unenhanced axial CT scan of the brain is performed from the vertex to the skull base. A dose lowering technique was utilized adhering to the principles of ALARA. CT DOSE: 1199.66 mGy.cm FINDINGS: Brain parenchyma: The brain parenchyma is normal in appearance. There is no hemorrhage, mass effect, or evidence of acute territorial ischemia by CT criteria. Martinez-white matter differentiation is preserved. No extra-axial fluid collection is seen. Ventricles, sulci, cisterns: Normal in configuration. Intracranial vasculature: The visualized intracranial vasculature at the skull base is normal in appearance. Calvarium: There are postoperative changes from occipital craniectomy. The calvarium is otherwise normal in appearance. 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 The visualized paranasal sinuses are otherwise clear. The mastoid air cells are well pneumatized. Orbits: The bony orbits are grossly intact. IMPRESSION: There is no hemorrhage, mass effect, or evidence of acute territorial ischemia by CT criteria. Electronically signed by: Jhonathan Prince M.D. 04/06/2018 12:03 PM XR chest 1V portable CLINICAL HISTORY: Left arm weakness COMPARISON STUDY: 08/25/2016 FINDINGS: The heart is enlarged. There is mild interstitial prominence of finding which in part is likely accentuated due to the patient's large body habitus. An element of mild pulmonary vascular congestion however cannot be excluded There is no lobar consolidation. There are no pleural effusions.[ IMPRESSION: 1. Cardiomegaly and mild interstitial prominence. 2. No evidence of focal pulmonary consolidation Electronically signed by: Alfred Mcnulty M.D. 04/06/2018 1:03 PM ECG Data Attestation: I personally reviewed and interpreted this ECG as follows: Indication: weakness Rate (beats per minute): 76 Rhythm: normal sinus Findings: no ST depression and no ST elevation Blood Pressure Blood Pressure Findings: Normal blood pressure Blood Pressure Disposition: did not require urgent referral MDM Narrative This is a 42-year-old female who presents emergency department with sudden onset of left arm weakness that started approximately 1 hour ago. Due to this a stroke alert was immediately initiated. I did consider giving this patient TPA however I feel she is not a candidate due to her complex medical history including brain surgery. The patient was given Ativan over concerns that this may be a seizure as she has had seizures previously. She was sent for a CT of the head as well as CTA of the head and neck which were found to be within normal limits. The patient was discussed with the stroke neurologist who asked that the patient receive aspirin. I did discuss the case with the hospitalist service who agreed to admit the patient. Patient was in agreement with the treatment plan. Impression & Plan Left arm weakness Critical Care Time I have personally spent greater than 33 minutes of critical care time in the direct management of this patient. This includes bedside care, interpretation of diagnostic studies, and testing, discussion with consultants, patient, and family members, and other required patient management activities. This 33 minutes is in excess of all separately billable procedures. Critical Care Time: Yes Total Critical Care Time: 33 Discharge Plan Visit Data Chief Complaint: Neuro Symptoms/Deficit Stated Complaint: LOSS OF FEELING LT ARM AND FACIAL NUMBNESS ED Provider: Mamadou Martins Discharge Problem: Left arm weakness Patient Disposition: Being Evaluated by Hospitalist Discharge Instructions Interventions: ED Discharge Assessment Last Done: 04/06/18 14:19 Forms Stand Alone Forms: My [facility] Mobile Backstage Prescriptions Prescriptions: No Action No Known Home Medications RF: 0 Referrals Referrals: Ching Abbasi MD [Primary Care Provider] - The scribe's documentation has been prepared under my direction and personally reviewed by me in its entirety. I confirm that the note above accurately reflects all work, treatment, procedures, and medical decision making performed by me.
--- NOTE | 2018-04-06 14:58 | Magnetic Resonance Report ---
Brain MRI WITH AND WITHOUT CONTRAST HISTORY: Pt c/o left arm weakness TECHNIQUE: Multiplanar multisequence MRI of the brain was performed both before and after the intrave nous administration of contrast. COMPARISON STUDY: Brain MRI 04/20/2011. FINDINGS: There are no areas of restricted diffusion to suggest acute infarction. The midline structu res are intact. The paranasal sinuses are clear. The mastoid air cells are clear. The ventricles and sulci are within normal limits for age. There is no mass, hematoma, midline shift. The major vascular flow-voids at the skull base are well maintained. Postcontrast sequences show no areas of abnormal e nhancement. Postoperative changes again noted within the right posterior fossa. IMPRESSION: No significant change compared to the prior study. No acute intracranial abnormality. Electronically signed by: Den James M.D. 04/06/2018 2:57 PM
[2018-04-06] MEDS ORDERED: PHARMACIST DISCHARGE MED REC CONSULT PRN (15:18)
[2018-04-06] MEDS ORDERED: ACETAMINOPHEN 325 MG TAB PO PRN (15:18)
[2018-04-06] MEDS ORDERED: ONDANSETRON INJ 2 MG/ML 2 ML VIAL IV PRN (15:18)
[2018-04-06] MEDS ORDERED: POLYETHYLENE (MIRALAX) 17 GM PACK PO PRN (15:18)
[2018-04-06] MEDS: NICOTINE 21 MG/24 HR TDSY TD SCH (15:55)
[2018-04-06] MEDS ORDERED: ENOXAPARIN INJ 40 MG/0.4 ML SYR SQ SCH (16:00)
[2018-04-07 06:05] LABS: Estimated Average Glucose 128 mg/dl; Hemoglobin A1C 6.1 % (4.5-5.6)
[2018-04-07 07:21] VITALS: PULSE 51
[2018-04-07 07:40] LABS: Basophils # (auto) 0.02 K/uL (0-0.2); Basophils % (auto) 0.3 %; Eosinophils # (auto) 0.11 K/uL (0-0.5); Eosinophils % (auto) 1.7 %; Hematocrit (blood only) 40.9 % (37-47); Hemoglobin 13.5 g/dL (12.0-16.0); Immature Granulocytes # (auto) 0.01 K/uL (0.00-0.02); Immature Granulocytes % (auto) 0.2 %; Lymphocytes # (auto) 2.12 K/uL (1.2-3.4); Lymphocytes % (auto) 33.7 %; Mean Corpuscular Volume 60.8 fL (80-100); Monocytes # (auto) 0.43 K/uL (0.11-0.59); Monocytes % (auto) 6.8 %; Neutrophils % (auto) 57.3 %; Platelet Count 178 K/uL (130-400); RDW Coefficient of Variation 17.1 % (11.5-14.5); RDW Standard Deviation 36.2 fL (36.4-46.3); Red Blood Count 6.73 M/uL (4.2-5.4); White Blood Count 6.29 K/uL (4.8-10.8)
[2018-04-07 08:13] LABS: Microcytosis Present; Ovalocytes 1+
[2018-04-07 08:14] LABS: Alanine Aminotransferase 22 U/L (12-78); Albumin Level 3.4 gm/dl (3.4-5.0); Aspartate Aminotransferase 13 U/L (15-37); BUN Creatinine Ratio 10.2 (10-20); Bilirubin Direct < 0.1 mg/dl (0-0.2); Blood Urea Nitrogen 9 mg/dl (7-18); Calcium 8.5 mg/dl (8.5-10.1); Carbon Dioxide 24 mmol/L (21-32); Chloride 109 mmol/L (98-107); Cholesterol 188 mg/dl (0-200); Creatinine Clr Calc Pharmacy 127.9 ml/min; Est GFR (African American) 91.4; Est GFR (Non-African American) 78.9; Glucose 95 mg/dl (70-99); Potassium 4.1 mmol/L (3.5-5.1); Sodium 139 mmol/L (136-145); Triglycerides 125 mg/dl (0-150); VLDL Cholesterol 25 mg/dl
[2018-04-07] MEDS: NICOTINE 21 MG/24 HR TDSY TD SCH (08:14)
[2018-04-07 08:17] LABS: Alkaline Phosphatase 64 U/L (45-117); Bilirubin,Total 0.4 mg/dl (0.2-1); Chol HDL Ratio 6; HDL Cholesterol 34 mg/dl; LDL Cholesterol Calculated 129 mg/dl; Total Protein 6.5 gm/dl (6.4-8.2)
[2018-04-07] MEDS ORDERED: ASPIRIN 81 MG ECTAB PO SCH (09:00)
[2018-04-07 12:10] VITALS: BP 118/78; TEMP 98.1; O2SAT 97
[2018-04-07] MEDS ORDERED: STROKE PATIENT DISCHARGE STA (13:12)
--- NOTE | 2018-04-07 19:03 | Discharge Summary ---
Date of Service April 07, 2018 Admission HPI Per Admitting Provider 42 yo female with history of brain surgery to remove several cysts years ago, followed with a history of pseudotumor cerebri and focal, silent seizures, presents to the ED today one hour after experiencing acute onset left arm and hand weakness and tremors. She says that she experienced the exact same issue on Tuesday morning, 5 days ago. She said that she woke up feeling normal, she was going to make some coffee and when she reached out to grab the coffee with her left hand she felt incredibly weak and her hand had tremors. She could not use the left arm because it was so weak. She thought that maybe she had to eat so fed herself with her right hand and the symptoms started to improve very slowly, lasted in total between 20-30 minutes. She felt fine the rest of the week until today around 10-1020. She had a normal morning, full strength in her left upper extremity. She went to the bank through the drive through [place] and when she reached out with her left arm she again had tremors and did not have the strength to even push the buttons on the [place], had to get out of her car and use her right hand. The weakness was associated with some numbness to tough but she did not have pins and needles sensation. She also had some numbness on the left side of her face. When she looked at her phone to read a text message her vision was slightly blurred. No weakness in left leg or on the right side of her face. Asked her about any headache. She denied headache today but admitted that yesterday she had a very intense headache, likely a migraine. In the ED a stroke alert was called because she was within one hour of onset of symptoms. Evaluated by stroke neurologist, decided against tPA. CT and CTA head and neck were normal. We are asked to admit for possible stroke, will get MRI. As mentioned above, patient has a history of several cysts being removed from her brain. As a result of the removal, she suffered some mild nerve irritation and damage, she would experience some pain and numbness on the right side of her face but that has been resolved for some time. 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 Dr. Riddle stopped the medications about one year ago and she has not had any issues the past year. She gets MRI of the brain yearly for follow up and her images have all been stable. Principal Diagnosis Transient left arm weakness, presumably vasospastic mechanism. Discharge Exam In general she is awake alert oriented x3 pleasant no acute distress. HEENT normal cephalic atraumatic mucous membranes moist. Breathing is unlabored no accessory muscle use. Skin shows no rashes no pallor or icterus. Neuro shows cranial nerves II through XII be grossly intact gross motor and sensory are intact, she shows no focal deficits whatsoever. Discharge Data Allergies Allergy/AdvReac Type Severity Reaction Status Date / Time morphine Allergy Mild SHORTNESS Verified 04/06/18 12:49 OF BREATH Penicillins Allergy Mild HIVES Verified 04/06/18 12:49 ibuprofen Allergy Unknown RASH Unverified 04/06/18 12:49 Consultations 04/06/18 12:59 ED Decision to Admit Stat 04/06/18 15:18 Consult Case Management - Discharge Planning Routine Ordered Studies 04/06/18 11:47 CT angio head w con Stat CT angio neck with con Stat CT head/brain wo con Stat 04/06/18 12:49 MR brain wo/w con Stat CT angiograms without any significant stenotic processes. MRI brain negative. A1c 6.1% Lipids as noted in the chart Hospital Course (1) Left arm weakness: -She had transient left arm weakness that resolved. -She was seen by tele-neurology in the ER as a stroke alert, no clear stroke was identified, TPA was not given, and they felt that a migrainous type mechanism may be the most likely -She was evaluated for any ischemic focus, MRI brain negative for any ischemia whatsoever, CT angiograms of head and neck without any atherosclerotic or stenotic processes -She showed no arrhythmia on the monitor -We discussed the very remote possibility of paradoxical embolus, but given that she had no MRI changes consistent with embolic disease, and no problems consistent with venous thromboembolic disease, patient and I both agreed that moving to a transesophageal echo at this time seemed needlessly invasive. The possibility of a transthoracic echo or later down the road a transesophageal echo can continue to be considered as an outpatient. -Most likely this was vasospasm, and a migrainous type mechanism, especially given that she had had a headache the day before. We discussed management options. Given that she had had a short episode on Tuesday, followed by the hour or more long episode yesterday leading to admission, we felt it most prudent to treat for now and withdraw treatment later if it does not seem to be helping or if it is causing side effects. -Initiated 81 mg aspirin, and 2.5 mg of amlodipine. -Stable for home, she was extremely desirous of going home, had wanted to see neurology, and yet at the same time given that neuro was not able to see her in the morning, she did not want to wait to be seen later in the afternoon. She was amenable to outpatient neurology evaluation, and this has been arranged -Close PCP follow-up as well -Stable for discharge Total Time Total Time Spent Total Time Spent (In Minutes): Greater than 30 minutes Discharge Plan Discharge Items Patient Disposition: Home - Self-Care Reason For Visit: LEFT ARM WEAKNESS, POSSIBLE STROKE GOOD Discharge Diagnosis: left arm weakness resolved, most likely vasospasm Discharge Goals: Diagnostic testing Activity: Resume your previous activity Non-emergency contact: Primary Care Provider and Neurologist Call non-emergency contact if: you have any medication questions and your symptoms worsen Follow-up/Referrals: Emili King PA-C [Nurse Practitioner] - 04/11/18 9:30 am (A follow-up appointment has been made at your PCP's office on your behalf. ) Britney Haro PA-C [Physician [employer] Developer] - 05/04/18 2:00 pm (A follow-up has been made with [facility] on your behalf. ) Diet: Regular Addtl Provider Instructions: Arm weakness -Fortunately the workup for stroke and strokelike illness has had no yield -The MRI of your brain did not show any or damaged brain tissue that would be indicative of a stroke -The angiography studies showed no blockages of blood vessels in your head or neck -As we discussed the only real remaining possibility would be the very remote chance of what is called a paradoxical embolus (where a blood clot in the leg skips from one side of the heart to the other, and then ends up in the brain) but this seems highly unlikely, both because of its rarity, and because of the fact that clot driven strokelike illness will most commonly have some degree of MRI abnormality. The main way to evaluate for this would be with what is called a transesophageal echo (where they do an ultrasound of your heart down your esophagus so they can see the top structures of the heart closely) but because it seems improbable with all of your circumstances, it certainly did not appear warranted to put you through an invasive procedure at this time. -Most likely we are looking at what is called vasospasm. This is when the blood vessel gets irritable and spasms down, causing a transient reduction in blood flow that can cause strokelike symptoms. -Since you had a short episode over the weekend followed by the episode that led to admission, as we discussed treatment for now appears to be warranted. That said if you have absolutely no symptoms at all moving forward, or start to have side effects to the medications, they could easily be stopped. -Amlodipine is technically a blood pressure medicine, but the main goal is that it prevents blood vessels from going into spasm. Usually for blood pressure of the dosing is 5 mg or 10 mg, since we are not treating for blood pressure, but really more working to prevent blood vessel spasm, we will have you on 2.5 mg. Usually at this level of a dose it is fairly low chance of side effect, but the main things to watch for would be feeling lightheaded or dizzy (especially upon standing) or seeing new swelling in your feet or ankles. -81 mg of aspirin is a very low dose blood thinner, with goal being that if blood vessel went into spasm, it would make it less likely for any clots to form in that bottleneck of blood flow. Usually this low a dose is quite well tolerated, with a small risk of stomach upset or ulcer, but generally only after a decade or more of use. -We will be getting a set up with Dr. High, as well as a neurology evaluation with Dr. Horner, in the near future. Future health: �As we discussed it is critically important to try to stop smoking. Generally we see smoking catch up with everyone who smokes, whether it is early vascular disease (heart attacks and strokes), COPD/smokers lung, or a myriad of cancers. Given that you are now at day quit, would be reasonable to try to not smoke again when you get home. -Incidentally as part of the workup for concern on stroke, a matter of routine is checking A1c values. An A1c is a measure of how sugar coverage your red blood cells are. Because red blood cells live for 90 days, and A1c gives a reasonable read of what your sugars have been doing over the last 3 months. Yours was 6.1%, which suggests that you have a bit of difficulty getting carbs/ sugars out of your bloodstream. You are not a type II diabetic, but it appears that it would take a degree of change of eating and exercise habits to prevent it. In general what we see is that avoiding simple/sugary/starchy carbs, and working towards a degree of light cardiovascular exercise more days than not, should prevent you from ever becoming a diabetic. Dr. High will keep an eye on these labs every 6-12 months or so. The goal would be to see it go down. -Your cholesterols were also a bit borderline, with a total of 188, a good of only 34, a bad of 129, and triglycerides of 125. Honestly, if you were able to quit smoking, your risk of vascular disease would be low enough that these would be very reasonable numbers. Prescriptions: New aspirin [Ecotrin Low Strength] 81 mg Tablet,Delayed Release (Dr/Ec) 81 mg PO QAM Qty: 30 RF: 0 amlodipine 2.5 mg tablet 2.5 mg PO DAILY Qty: 30 RF: 0 No Action No Known Home Medications RF: 0 Stand-Alone Forms: [facility] Discharge Orders: Discharge Order (Routine); Ordered 04/07/18 Ordered By: Madhu Del Cid Admission Data Admit Date/Time: 04/06/18 13:21 Attending Provider: Madhu Del Cid Admit Provider: Marco Gordon Primary Care Provider: Ching Abbasi V. Other Providers: Marco Gordon Service: Telemetry Other Interventions: Discharge Summary Assessment (RN) Last Done: 04/07/18 13:14 DC Date/Time DO NOT enter until pt leaves facility: 04/07/18 15:12
== END 2018-04-07 15:12 | disposition home or self-care (01) ==
LOC: 2S 11:29 → ED 11:29 → 2S 14:19 → SUATTDRO 15:08